=== PATIENT | male | born 1985 | race Caucasian/White ===

== ENCOUNTER 2021-09-19 14:18 | Emergency (ER) | payer MEDICAID ==
[~2021-09-19] VITALS: Ht 175.3 cm; Wt 60.0 kg
[2021-09-19] MEDS ORDERED: SODIUM CHLORIDE 0.9% 1,000 ML IV ONE (15:00)
[2021-09-19 15:08] LABS: BASOPHILS % 0.8 % (0.0-2.0); EOSINOPHILS % 1.4 % (0.0-5.0); LYMPHOCYTES % 12.4 % (20.0-50.0); MEAN CORPUSCULAR HEMOGLOBIN 27.3 pg (28.0-32.0); MEAN CORPUSCULAR VOLUME 81.1 fL (80.0-94.0); MEAN PLATELET VOLUME 6.4 fl (7.4-10.4); MONOCYTES % 5.9 % (2.0-8.0); NEUTROPHILS % 79.5 % (40.0-76.0); PLATELET 499 x1000/uL (130-400); RED BLOOD CELL COUNT 2.33 mill/uL (4.7-6.1)
[2021-09-19 15:12] LABS: CHLORIDE 110 mEq/L (98-107)
[2021-09-19 15:15] LABS: HEMATOCRIT. 18.9 % (42.0-52.0); HEMOGLOBIN. 6.4 g/dL (14.0-18.0)
[2021-09-19] MEDS ORDERED: MORPHINE SULFATE 4 MG/ML CPJ (NOT FOR IM USE) IV ONE (15:15)
[2021-09-19 18:24] LABS: CLARITY URINE CLOUDY (CLEAR); COLOR URINE YELLOW (YELLOW); KETONES URINE NEGATIVE (NEGATIVE); LEUKOCYTE ESTERASE URINE 2+ (NEGATIVE); NITRITE URINE NEGATIVE (NEGATIVE); OCCULT BLOOD URINE 2+ (NEGATIVE); PROTEIN URINE 3+ (NEGATIVE); SPECIFIC GRAVITY URINE 1.015 (1.005-1.030); UROBILINOGEN URINE 0.2 E.U./dL (0.2-1.0)
[2021-09-19] MEDS ORDERED: CEFTRIAXONE 1 G PREMIX 50 ML IV ONE (22:45)
[2021-09-19 23:00] VITALS: BP 153/93
== END 2021-09-19 23:10 | disposition short-term general hospital (02) ==
LOC: ER 14:22 → CANBEDREQ 22:15 → ER 23:10
DX: R33.9 Retention of urine, unspecified (principal); N39.0 Urinary tract infection, site not specified; I50.9 Heart failure, unspecified; E11.9 Type 2 diabetes mellitus without complications; Z20.822 Contact with and (suspected) exposure to COVID-19
CPT/HCPCS: 36415; 71045; 80053; 81003; 82962; 83690; 83880; 84484; 85025; 86850; 86900; 86901; 86920; 87077; 87086; 87186; 87426; 93005; 93970; 96361; 96365; 96375; 99285; J0696; J2270; A4315

== ENCOUNTER 2022-06-28 17:16 | Inpatient (IN) | payer MEDICAID, OTHER ==
[~2022-06-28] VITALS: Ht 165.1 cm; Wt 68.9 kg
[2022-06-28 19:33] LABS: BASOPHILS % 0.3 % (0.0-2.0); EOSINOPHILS % 0.3 % (0.0-5.0); HEMATOCRIT. 27.5 % (42.0-52.0); HEMOGLOBIN. 9.2 g/dL (14.0-18.0); LYMPHOCYTES % 14.4 % (20.0-50.0); MEAN CORPUSCULAR VOLUME 80.5 fL (80.0-94.0); MEAN PLATELET VOLUME 6.8 fl (7.4-10.4); MONOCYTES % 6.2 % (2.0-8.0); NEUTROPHILS % 78.8 % (40.0-76.0); PLATELET 691 x1000/uL (130-400); RED BLOOD CELL COUNT 3.42 mill/uL (4.7-6.1); RED CELL DISTRIBUTION WIDTH 15.5 % (11.6-14.6)
[2022-06-28 19:35] LABS: CHLORIDE 110 mEq/L (98-107)
[2022-06-28 19:44] LABS: ETHANOL BLOOD < 10 mg/dL
[2022-06-28 20:06] LABS: CLARITY URINE CLEAR (CLEAR); COLOR URINE YELLOW (YELLOW); KETONES URINE NEGATIVE (NEGATIVE); LEUKOCYTE ESTERASE URINE NEGATIVE (NEGATIVE); NITRITE URINE NEGATIVE (NEGATIVE); OCCULT BLOOD URINE TRACE (NEGATIVE); PH URINE 6.5 (4.5-8.0); PROTEIN URINE 4+ (NEGATIVE); SPECIFIC GRAVITY URINE 1.018 (1.005-1.030); UROBILINOGEN URINE 0.2 E.U./dL (0.2-1.0)
[2022-06-28] MEDS ORDERED: SODIUM CHLORIDE 0.9% 1,000 ML IV ONE (20:15)
[2022-06-28] MEDS ORDERED: ONDANSETRON HCL 4MG/2ML INJ IM ONE (20:15)
[2022-06-29] MEDS ORDERED: LORAZEPAM 2MG/ML CPJ IV PRN (03:45)
[2022-06-29] MEDS ORDERED: ACETAMINOPHEN 325MG TABLET PO PRN ×2 (03:45)
[2022-06-29] MEDS ORDERED: GUAIFENESIN 200MG/10ML SUGAR FREE UDC PO PRN (03:45)
[2022-06-29] MEDS ORDERED: CLONIDINE 0.1MG TABLET PO PRN (03:45)
[2022-06-29] MEDS ORDERED: ZINC SULF/CUSO4 P-HYD/MANG/CR 10 ML VIAL IV SCH (04:00)
[2022-06-29] MEDS ORDERED: THIAMINE HCL 100 MG/1 ML 2ML VIAL IM SCH (04:00)
[2022-06-29] MEDS ORDERED: FOLIC ACID 1 MG in SODIUM CHLORIDE 0.9% 500 ML IV SCH (04:00)
[2022-06-29] MEDS ORDERED: DEXTROSE 50% WATER 50ML SYRINGE IV PRN (04:45)
[2022-06-29 04:59] LABS: *AMPHETAMINES SCREEN URINE PRESUMTIVE POSITIVE (NEGATIVE); *BARBITURATES SCREEN URINE NEGATIVE (NEGATIVE); *BENZODIAZEPINES SCREEN URINE NEGATIVE (NEGATIVE); *COCAINE SCREEN URINE NEGATIVE (NEGATIVE); CANNABINOID URINE SCREEN NEGATIVE (NEGATIVE); METHADONE URINE SCREEN NEGATIVE (NEGATIVE); OPIATES URINE SCREEN NEGATIVE (NEGATIVE); PHENCYCLIDINE URINE SCREEN NEGATIVE (NEGATIVE)
[2022-06-29] MEDS: AMLODIPINE 5MG TABLET PO SCH (05:15)
[2022-06-29] MEDS ORDERED: IPRATROPIUM/ALBUTEROL 0.5-3(2.5)MG/3ML NEB HHN PRN (05:15)
[2022-06-29] MEDS ORDERED: FOLIC ACID 1 MG, THIAMINE HCL 100 MG, MVI, ADULT NO.1 10 ML in DEXTROSE 5% WATER 1,000 ML IV NR ×4 (05:30)
[2022-06-29] MEDS: METHYLPREDNISOLONE SOD SUCC 125 MG/2 ML VIAL IV SCH ×3 (06:31→21:34)
[2022-06-29 06:39] LABS: BASOPHILS % 0.3 % (0.0-2.0); EOSINOPHILS % 0.7 % (0.0-5.0); HEMATOCRIT. 25.7 % (42.0-52.0); HEMOGLOBIN. 8.6 g/dL (14.0-18.0); LYMPHOCYTES % 21.9 % (20.0-50.0); MEAN CORPUSCULAR VOLUME 80.8 fL (80.0-94.0); MEAN PLATELET VOLUME 6.9 fl (7.4-10.4); MONOCYTES % 9.5 % (2.0-8.0); NEUTROPHILS % 67.6 % (40.0-76.0); PLATELET 633 x1000/uL (130-400); RED BLOOD CELL COUNT 3.18 mill/uL (4.7-6.1); RED CELL DISTRIBUTION WIDTH 15.7 % (11.6-14.6)
[2022-06-29] MEDS: IPRATROPIUM/ALBUTEROL 0.5-3(2.5)MG/3ML NEB HHN SCH ×2 (08:00→12:00)
[2022-06-29] MEDS: BLOOD SUGAR DIAGNOSTIC STRIP TEST SCH ×4 (09:00→21:34)
[2022-06-29] MEDS: ENOXAPARIN 30MG/0.3ML SYR SUBCUT SCH (10:31)
[2022-06-29] MEDS: INSULIN LISPRO 100 UNITS/ML SUBCUT SCH ×5 (10:33→21:35)
[2022-06-29 12:00] VITALS: BP 130/84
[2022-06-29 13:58] VITALS: BP 130/84
[2022-06-29 14:54] LABS: HEPATITIS B SURFACE ANTIGEN NEGATIVE
[2022-06-29] MEDS ORDERED: IPRATROPIUM BROMIDE (0.02%) 0.5MG/2.5ML NEB HHN PRN (16:45)
[2022-06-29] MEDS ORDERED: ALBUTEROL (0.083%) 2.5MG/3ML NEB HHN PRN (16:45)
[2022-06-29 16:46] VITALS: BP 128/72
[2022-06-29] MEDS ORDERED: IPRATROPIUM BROMIDE (0.02%) 0.5MG/2.5ML NEB HHN SCH (17:00)
[2022-06-29] MEDS ORDERED: ALBUTEROL (0.083%) 2.5MG/3ML NEB HHN SCH (17:00)
[2022-06-29 20:00] VITALS: BP 140/94
[2022-06-29] MEDS ORDERED: INSULIN GLARGINE 100 UNITS/ML SUBCUT SCH (22:00)
[2022-06-29] MEDS ORDERED: SODIUM CHLORIDE 0.45% 1,000 ML IV SCH (22:15)
[2022-06-29] MEDS ORDERED: MELATONIN 3MG TABLET PO PRN (22:45)
[2022-06-30] VITALS: BP 142/90
[2022-06-30 04:00] VITALS: BP 132/84
[2022-06-30] MEDS: METHYLPREDNISOLONE SOD SUCC 125 MG/2 ML VIAL IV SCH ×2 (05:35→15:55)
[2022-06-30] MEDS: BLOOD SUGAR DIAGNOSTIC STRIP TEST SCH ×2 (06:42→11:59)
[2022-06-30 07:12] LABS: HEMOGLOBIN. 8.9 g/dL (14.0-18.0); LYMPHOCYTES % 9.2 % (20.0-50.0); MEAN CORPUSCULAR HEMOGLOBIN 27.2 pg (28.0-32.0); MEAN CORPUSCULAR VOLUME 79.9 fL (80.0-94.0); MONOCYTES % 1.7 % (2.0-8.0); NEUTROPHILS % 89.1 % (40.0-76.0); PLATELET 706 x1000/uL (130-400); RED BLOOD CELL COUNT 3.26 mill/uL (4.7-6.1)
[2022-06-30 07:22] LABS: CHLORIDE 103 mEq/L (98-107)
[2022-06-30 07:38] LABS: T4 FREE 0.93 ng/dL (0.76-1.46); TOTAL IRON BINDING CAPACITY 177 ug/dL (250-450)
[2022-06-30 07:59] LABS: FOLIC ACID (FOLATE) SERUM 7.7 ng/mL (>5.38)
[2022-06-30 08:21] VITALS: BP 132/82
[2022-06-30] MEDS: AMLODIPINE 5MG TABLET PO SCH (08:27)
[2022-06-30] MEDS: INSULIN LISPRO 100 UNITS/ML SUBCUT SCH ×4 (08:29→12:38)
[2022-06-30] MEDS: ENOXAPARIN 30MG/0.3ML SYR SUBCUT SCH (08:31)
[2022-06-30] MEDS ORDERED: SERTRALINE HCL 25MG TABLET PO SCH (09:00)
[2022-06-30 12:00] VITALS: BP 128/74
[2022-06-30 14:27] VITALS: BP 128/74
[2022-06-30 15:41] VITALS: BP 122/86
[2022-07-03 04:09] LABS: HIV SCREEN 4G Non Reactive (Non Reactive)
== END 2022-06-30 17:51 | disposition home or self-care (01) | DRG 469 ==
LOC: ER 17:16 → 7WST 06-29 01:20 → EDBEDREQ 06-29 07:42 → EDBEDREQSVC 06-29 07:42 → ENRESERV 06-29 11:11
PROVIDERS: ADMIT Internal Medicine; ATTEND Internal Medicine
DX: N17.9 Acute kidney failure, unspecified (principal); E43 Unspecified severe protein-calorie malnutrition; E10.621 Type 1 diabetes mellitus with foot ulcer; E87.20 Acidosis, unspecified; D63.8 Anemia in other chronic diseases classified elsewhere; E88.09 Other disorders of plasma-protein metabolism, not elsewhere classified; R11.2 Nausea with vomiting, unspecified; E10.22 Type 1 diabetes mellitus with diabetic chronic kidney disease; D50.9 Iron deficiency anemia, unspecified; E10.65 Type 1 diabetes mellitus with hyperglycemia; F19.10 Other psychoactive substance abuse, uncomplicated; N18.4 Chronic kidney disease, stage 4 (severe); F41.0 Panic disorder [episodic paroxysmal anxiety]; Z20.822 Contact with and (suspected) exposure to COVID-19; I12.9 Hypertensive chronic kidney disease with stage 1 through stage 4 chronic kidney disease, or unspecified chronic kidney disease; L97.519 Non-pressure chronic ulcer of other part of right foot with unspecified severity; Z59.00 Homelessness unspecified; Z87.891 Personal history of nicotine dependence; Z91.14 Patient's other noncompliance with medication regimen; Z79.4 Long term (current) use of insulin; Z68.25 Body mass index [BMI] 25.0-25.9, adult; Z91.199 Patient's noncompliance with other medical treatment and regimen due to unspecified reason
CPT/HCPCS: 36415; 71045; 73718; 74176; 76770; 80048; 80053; 80305; 80320; 81003; 82607; 82746; 82962; 83036; 83540; 83550; 83880; 84439; 84443; 84484; 85025; 86705; 86709; 86803; 87340; 87389; 87426; 93005; 93306; 93970; 99285; C9803; J1650; J1815; J2405; J2930; J3411; J3490; J7030; J7070; G0480